=== PATIENT | male | born 1970 | race African-American/Black ===

== ENCOUNTER 2017-12-31 04:07 | Emergency (ER) | payer SELFPAY ==
[~2017-12-31] VITALS: Ht 177.8 cm; Wt 86.0 kg
[2017-12-31] MEDS ORDERED: SODIUM CHLORIDE 0.9% 1,000 ML IV ONE ×2 (04:58→09:15)
[2017-12-31] MEDS ORDERED: LORAZEPAM 2MG/ML CPJ IM SCH (05:14)
[2017-12-31] MEDS ORDERED: DIPHENHYDRAMINE 50MG/ML VIAL IM SCH (05:14)
[2017-12-31] MEDS: HALOPERIDOL LACTATE 5MG/ML VIAL IM SCH ×2 (05:30→05:31)
[2017-12-31 06:52] LABS: BASOPHILS % 0.6 % (0.0-2.0); EOSINOPHILS % 0.1 % (0.0-5.0); HEMATOCRIT. 38.3 % (42.0-52.0); LYMPHOCYTES % 7.5 % (20.0-50.0); MEAN CORPUSCULAR HEMOGLOBIN 29.8 pg (28.0-32.0); MEAN CORPUSCULAR VOLUME 87.8 fL (80.0-94.0); MEAN PLATELET VOLUME 8.7 fl (7.4-10.4); MONOCYTES % 8.9 % (2.0-8.0); NEUTROPHILS % 82.9 % (40.0-76.0); PLATELET 231 x1000/uL (130-400); RED BLOOD CELL COUNT 4.36 mill/uL (4.7-6.1)
[2017-12-31 06:57] LABS: CHLORIDE 112 mEq/L (98-107)
[2017-12-31 07:01] LABS: ETHANOL BLOOD 97 mg/dL
[2017-12-31 07:17] LABS: CREATINE KINASE 1315 IU/L (39-308)
[2017-12-31] MEDS ORDERED: SODIUM CHLORIDE 0.45% 1000ML IV SCH (09:15)
[2017-12-31 11:41] LABS: CLARITY URINE CLEAR (CLEAR); COLOR URINE YELLOW (YELLOW); KETONES URINE TRACE (NEGATIVE); LEUKOCYTE ESTERASE URINE NEGATIVE (NEGATIVE); NITRITE URINE NEGATIVE (NEGATIVE); OCCULT BLOOD URINE TRACE (NEGATIVE); PROTEIN URINE NEGATIVE (NEGATIVE); SPECIFIC GRAVITY URINE 1.024 (1.005-1.030)
[2017-12-31 11:43] LABS: CREATINE KINASE 2172 IU/L (39-308)
[2017-12-31 11:54] LABS: *BARBITURATES SCREEN URINE NEGATIVE (NEGATIVE); *BENZODIAZEPINES SCREEN URINE NEGATIVE (NEGATIVE); *COCAINE SCREEN URINE NEGATIVE (NEGATIVE)
[2017-12-31 11:55] LABS: CANNABINOID URINE SCREEN PRESUMTIVE POSITIVE (NEGATIVE); METHADONE URINE SCREEN NEGATIVE (NEGATIVE); OPIATES URINE SCREEN NEGATIVE (NEGATIVE); PHENCYCLIDINE URINE SCREEN NEGATIVE (NEGATIVE)
[2017-12-31 12:04] LABS: *AMPHETAMINES SCREEN URINE NEGATIVE (NEGATIVE)
[2017-12-31 12:39] VITALS: BP 132/72
== END 2017-12-31 13:23 | disposition left against medical advice (07) ==
LOC: ER 04:07
DX: M62.82 Rhabdomyolysis (principal); F10.129 Alcohol abuse with intoxication, unspecified; R45.1 Restlessness and agitation; D64.9 Anemia, unspecified; R31.9 Hematuria, unspecified; F12.10 Cannabis abuse, uncomplicated; M79.1 Myalgia; F91.1 Conduct disorder, childhood-onset type; R74.8 Abnormal levels of other serum enzymes; Y90.4 Blood alcohol level of 80-99 mg/100 ml
CPT/HCPCS: 36415; 80053; 80305; 80307; 80329; 81003; 82550; 85025; 96372; 99285; G0482; J1200; J1630; J2060; Z7610